=== PATIENT | female | born 1955 | race African-American/Black ===

== ENCOUNTER 2017-05-06 06:52 | Emergency (ER) | payer MEDICAID, MEDICARE, OTHER | END 2017-05-06 08:28 | disposition home or self-care (01) | LOC: BURERS 06:52 | DX: S00.31XA Abrasion of nose, initial encounter (principal); E11.9 Type 2 diabetes mellitus without complications; F03.90 Unspecified dementia, unspecified severity, without behavioral disturbance, psychotic disturbance, mood disturbance, and anxiety; F31.9 Bipolar disorder, unspecified; Z79.899 Other long term (current) drug therapy; Z79.84 Long term (current) use of oral hypoglycemic drugs; W05.0XXA Fall from non-moving wheelchair, initial encounter; Y92.129 Unspecified place in nursing home as the place of occurrence of the external cause | CPT/HCPCS: 99282 ==

== ENCOUNTER 2017-05-10 06:33 | Emergency (ER) | payer OTHER ==
--- NOTE | 2017-05-10 16:25 | RAD ---
PELVIS ONE VIEW 05/10/17 No fracture was apparent. The hips both appear intact and the hip joints are normal in width. There i s no widening of offset of the symphysis. The SI joints are symmetrical. Degenerative disc disease is seen in the lower lumbar spine. Arteriosclerotic change is seen in the femoral arteries. IMPRESSION: No acute bony finding. POS: HOME
--- NOTE | 2017-05-10 16:26 | RAD ---
LEFT HIP TWO VIEWS: 05/10/17 No fracture, dislocation or acute traumatic change was found. The adjacent pubic ring appears intact. The hip joint is normal in width. Femoral artery calcifications are present. IMPRESSION: No acute finding. POS: HOME
== END 2017-05-10 07:39 | disposition home or self-care (01) ==
LOC: BURERS 06:33
DX: M25.552 Pain in left hip (principal); E11.9 Type 2 diabetes mellitus without complications; F31.9 Bipolar disorder, unspecified; F03.90 Unspecified dementia, unspecified severity, without behavioral disturbance, psychotic disturbance, mood disturbance, and anxiety; W06.XXXA Fall from bed, initial encounter
CPT/HCPCS: 72170

== ENCOUNTER 2017-06-09 07:52 | Emergency (ER) | payer OTHER ==
--- NOTE | 2017-06-09 10:12 | CT ---
CT FACIAL BONE: DATE: 06/09/17. FINDINGS: Spiral CT of the face was performed following trauma. Axial slices were acquired, then coronal recon structions were done. There are fractures seen near the tip of the nasal bones. The nasal septum is deviated to the right. The remaining bones of the face appear intact. Orbital rims, zygomatic arches, and mandible showed no fracture. The paranasal sinuses are clear. The retroorbital areas appear normal. IMPRESSION: Fractures through the tips of the nasal bones. Nasal septal deviation. POS: HOME
--- NOTE | 2017-06-09 10:20 | CT ---
CT OF THE BRAIN: DAET: 06/09/17. FINDINGS: There is a low-density area in the left occipital lobe consistent with a stroke, age indeterminate. There were no old films to compare with. It could easily be recent or subacute. Elsewhere, there ar e chronic ischemic changes throughout the deep white matter of cerebrum. No intracranial bleeding or extraaxial hematoma was seen. Diffuse atrophy with moderate compensatory dilatation of the ventricl es. There is no air fluid level in the sphenoid sinus and the mastoid air cells are clear. Fracture s through the tips of the nasal bones are noted. IMPRESSION: 1. Atrophy and chronic ischemic changes. 2. Left occipital stroke, age indeterminate. See above. 3. Fractures through the tips of the nasal bones. POS: HOME
[2017-06-09] MEDS ORDERED: Lorazepam 0.5 MG TAB ONE (10:29)
[2017-06-09] MEDS ORDERED: Lorazepam 2 MG/ML VIAL ONE (10:40)
--- NOTE | 2017-06-09 16:18 | RAD ---
RIGHT KNEE FOUR VIEWS: Date: 06-09-17 FINDINGS: Multiple views show no evident fracture or joint effusion. There are some very minor osteophytes pres ent. Arterial calcifications are present. Ligamentous ossifications are present around the patella. IMPRESSION: Mild chronic changes but no acute findings. POS: HOME
== END 2017-06-09 11:27 | disposition home or self-care (01) ==
LOC: BURERS 07:52
DX: S02.2XXA Fracture of nasal bones, initial encounter for closed fracture (principal); S80.01XA Contusion of right knee, initial encounter; I63.9 Cerebral infarction, unspecified; E11.9 Type 2 diabetes mellitus without complications; F03.90 Unspecified dementia, unspecified severity, without behavioral disturbance, psychotic disturbance, mood disturbance, and anxiety; F31.9 Bipolar disorder, unspecified; Z79.84 Long term (current) use of oral hypoglycemic drugs; Z79.899 Other long term (current) drug therapy; W19.XXXA Unspecified fall, initial encounter
CPT/HCPCS: 70450; 70486; 96372; J2060

== ENCOUNTER 2017-07-17 01:32 | Emergency (ER) | payer OTHER ==
--- NOTE | 2017-07-17 11:52 | CT ---
CHEST 2 VIEWS: Date: 07/16/17 Follow-up chest film with PA and lateral views obtained. FINDINGS: Mild cardiomegaly is noted. 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 There are no lar ge effusions or infiltrates. Some lingular streaking is seen, which is either scar or atelectasis. Sl ight elevation of the right hemidiaphragm is no different than the prior films. Lateral view shows the sternum. No gross sternal abnormality appreciated. IMPRESSION: Normal appearance for postoperative chest film. POS: HOME
--- NOTE | 2017-07-17 11:54 | CT ---
PRELIMINARY REPORT/[facility]/EMERGENTY AFTER-HOURS PROCEDURE CT Maxillofacial Without Intravenous Contrast EXAM DATE/TIME: Exam ordered 07/17/2017 1:57 AM CLINICAL HISTORY: 62 years old, female; Injury or trauma; Fall; Patient HX: Fall face 1st rt side swelling TECHNIQUE: Axial computed tomography images of the face without intravenous contrast. All CT scans at this [facility] use one or more dose reduction techniques, viz.: automated exposure control; ma/Kv per patient si ze (including targeted exams where dose is matched to indication; i.e. head); or iterative reconstruc tion technique. COMPARISON: CT Facial Bones WO Con 2017-06-09 08:22 FINDINGS: Bones/joints: Acute blowout fracture of the medial wall of the right orbit. Acute displaced bilateral nasal bone fractures. Remaining facial bones are intact. Soft tissues: Large right facial/periorbital hematoma. Orbits: No globe rupture or retrobulbar hematoma. Sinuses: Unremarkable. No air-fluid levels. IMPRESSION: 1. Acute blowout fracture of the medial wall of the right orbit. 2. Acute displaced bilateral nasal bone fractures. Thank you for allowing us to participate in the care of your patient. Dictated and Authenticated by: Artis Márquez MD 07/17/2017 2:20 AM Central Time ([place] & [place]) FINAL REPORT CT OF THE FACIAL BONES: Date: 07/17/17 Comparison is made with the 06/28/17 and 06/09/17 CT of the face exams. FINDINGS: Again noted is prominent soft tissue swelling and bleeding in the soft tissues around the right orbit and anterior to the right maxillary sinus. The degree of swelling has increased in the interval, as has the density, suggesting additional and more recent bleeding. The globe itself appears intact. The retroorbital areas appear normal bilaterally. There is little irregularity of the tips of the nasal bones, which are probably from a recent fractur e. This can be seen on the 06/09/17 study. Additionally, there is deformity of the medial wall of the right orbit. This also was present on the 06/09/17 study, so is truly not acute. Given that there we re never any mucosal changes in the ethmoid sinuses in this region, it is likely that this is a remot e injury, rather than a truly acute one. All of the paranasal sinuses are currently clear. The zygomatic arches and mandible appear intact. No other recent facial fractures appreciated. IMPRESSION: 1. New additional right periorbital and facial swelling with increased density suggestive of additio nal bleeding/trauma to this area. 2. Evidence of prior injury to the nasal bones, but there is no change since the last study here. 3. Deformity of the medial wall of the right orbit consistent with prior trauma. With the benefit of older studies (which Marysol did not have), I can see that this area has not changed in the last two . The lack of any sinus changes on any of these studies around these area mitigates against a mo re recent injury and more towards a remote one. Report in substantial agreement with preliminary reading by Marysol, except for age of medial orbit inju ry. POS: HOME
== END 2017-07-17 03:59 | disposition home or self-care (01) ==
LOC: BURERS 01:32
DX: S02.31XA Fracture of orbital floor, right side, initial encounter for closed fracture (principal); S02.2XXA Fracture of nasal bones, initial encounter for closed fracture; E11.9 Type 2 diabetes mellitus without complications; Z79.899 Other long term (current) drug therapy; Z79.82 Long term (current) use of aspirin; Z79.84 Long term (current) use of oral hypoglycemic drugs; W19.XXXA Unspecified fall, initial encounter; Y92.121 Bathroom in nursing home as the place of occurrence of the external cause
CPT/HCPCS: 70450; 70486